=== PATIENT | female | born 1940 | race Caucasian/White ===

== ENCOUNTER 2021-05-10 11:55 | Observation (INO) | payer MEDICARE, OTHER ==
[~2021-05-10] VITALS: Ht 160 cm; Wt 94.1 kg
[2021-05-10 12:52] LABS: HEMOGLOBIN 13.3 gm/dl (12.3-15.3); RED BLOOD COUNT 4.75 M/UL (4.00-5.10); WHITE BLOOD COUNT 8.9 K/UL (4.5-11.0)
[2021-05-10] MEDS ORDERED: LIPITOR TAB 2020 MG PO (14:19)
[2021-05-10] MEDS ORDERED: COREG 12.5MG12.5 MG PO (14:19)
[2021-05-10] MEDS ORDERED: GLIPIZIDE XL5 MG PO (14:20)
[2021-05-10] MEDS ORDERED: ZESTRIL 40 MG T40 MG PO (14:21)
[2021-05-10] MEDS ORDERED: HYDROCHLOROTHIA25 MG PO (14:21)
[2021-05-10] MEDS ORDERED: THEO-24300 MG PO (14:22)
[2021-05-10] MEDS ORDERED: ASPIRIN EC325 MG PO (14:27)
[2021-05-10 15:10] LABS: BUN/CREATININE RATIO 21 (0-10)
[2021-05-11 02:31] LABS: HEMOGLOBIN 12.8 gm/dl (12.3-15.3); RED BLOOD COUNT 4.37 M/UL (4.00-5.10); WHITE BLOOD COUNT 8.1 K/UL (4.5-11.0)
[2021-05-11 03:04] LABS: BUN/CREATININE RATIO 23 (0-10)
[2021-05-12 02:00] LABS: HEMOGLOBIN 12.8 gm/dl (12.3-15.3); RED BLOOD COUNT 4.48 M/UL (4.00-5.10); WHITE BLOOD COUNT 8.9 K/UL (4.5-11.0)
[2021-05-12] MEDS ORDERED: AMLODIPINE BESYL5 MG PO (15:43)
[2021-05-12] MEDS ORDERED: HYDROCODON-ACE1 EAC4 PO (15:43)
[2021-05-12] MEDS ORDERED: LEVOFLOXACIN250 MG PO (15:43)
[2021-05-12] MEDS ORDERED: ACETAMINOPHEN325 MG PO (15:43)
== END 2021-05-12 17:13 | disposition home or self-care (01) ==
LOC: ER1 11:55 → PROG CARE 14:13 → CDU 14:13 → PROG CARE 14:13
PROVIDERS: Emergency Medicine; Internal Medicine; Physician Assistant; ADMIT Internal Medicine Infectious Disease
DX: I49.5 Sick sinus syndrome (principal); R00.1 Bradycardia, unspecified; S61.213A Laceration without foreign body of left middle finger without damage to nail, initial encounter; S61.215A Laceration without foreign body of left ring finger without damage to nail, initial encounter; S61.217A Laceration without foreign body of left little finger without damage to nail, initial encounter; S61.512A Laceration without foreign body of left wrist, initial encounter; S51.012A Laceration without foreign body of left elbow, initial encounter; S40.212A Abrasion of left shoulder, initial encounter; I10 Essential (primary) hypertension; E78.5 Hyperlipidemia, unspecified; I25.10 Atherosclerotic heart disease of native coronary artery without angina pectoris; F17.210 Nicotine dependence, cigarettes, uncomplicated; N19 Unspecified kidney failure; E11.9 Type 2 diabetes mellitus without complications; I25.2 Old myocardial infarction; E78.00 Pure hypercholesterolemia, unspecified; J44.9 Chronic obstructive pulmonary disease, unspecified; Z20.822 Contact with and (suspected) exposure to COVID-19; Z88.0 Allergy status to penicillin; Z88.5 Allergy status to narcotic agent; Z88.8 Allergy status to other drugs, medicaments and biological substances; Z95.5 Presence of coronary angioplasty implant and graft; Z91.81 History of falling; Z86.73 Personal history of transient ischemic attack (TIA), and cerebral infarction without residual deficits; Z79.82 Long term (current) use of aspirin; Z79.84 Long term (current) use of oral hypoglycemic drugs; Z79.899 Other long term (current) drug therapy; W19.XXXA Unspecified fall, initial encounter
CPT/HCPCS: ECHO; 12002; 36415; 70450; 71045; 73030; 73080; 73110; 73130; 80048; 80053; 80198; 82550; 82553; 82962; 83735; 83874; 83880; 84439; 84443; 84484; 85025; 85610; 85730; 93005; 93306; 94664; 94760; 96374; 96376; 97162; 99285; G0378; J0360; U0002

== ENCOUNTER 2022-07-16 18:38 | Inpatient (IN) | payer MEDICARE, OTHER ==
[~2022-07-16] VITALS: Ht 160 cm; Wt 104.0 kg
[~2022-07-16 18:38] MED LIST: ACETAMINOPHEN325 MG PO; AMLODIPINE BESYL5 MG PO; ASPIRIN EC325 MG PO; COREG 12.5MG12.5 MG PO; GLIPIZIDE XL5 MG PO; HYDROCHLOROTHIA25 MG PO; HYDROCODON-ACE1 EAC4 PO; LEVOFLOXACIN250 MG PO; LIPITOR TAB 2020 MG PO; THEO-24300 MG PO; ZESTRIL 40 MG T40 MG PO
[2022-07-16 19:18] LABS: HEMOGLOBIN 15.8 gm/dl (12.3-15.3); RED BLOOD COUNT 5.27 M/UL (4.00-5.10)
[2022-07-16] MEDS ORDERED: LATANOPROST2.5 ML OP (22:26)
[2022-07-16] MEDS ORDERED: PROAIR HFA8.5 GM INH (22:30)
[2022-07-17 04:37] LABS: HEMOGLOBIN 14.5 gm/dl (12.3-15.3); RED BLOOD COUNT 4.89 M/UL (4.00-5.10); WHITE BLOOD COUNT 19.6 K/UL (4.5-11.0)
[2022-07-17] MEDS ORDERED: AMLODIPINE BESY10 MG PO (09:21)
[2022-07-18 05:22] LABS: WHITE BLOOD COUNT 22.9 K/UL (4.5-11.0)
[2022-07-18 05:25] LABS: HEMOGLOBIN 12.3 gm/dl (12.3-15.3); RED BLOOD COUNT 4.17 M/UL (4.00-5.10)
[2022-07-19 09:00] LABS: HEMOGLOBIN 11.8 gm/dl (12.3-15.3)
[2022-07-19 09:04] LABS: WHITE BLOOD COUNT 15.8 K/UL (4.5-11.0)
[2022-07-20 08:39] LABS: WHITE BLOOD COUNT 21.8 K/UL (4.5-11.0)
[2022-07-20 09:37] LABS: HEMOGLOBIN 11.6 gm/dl (12.3-15.3); RED BLOOD COUNT 3.9 M/UL (4.00-5.10); WHITE BLOOD COUNT 16.2 K/UL (4.5-11.0)
--- NOTE | 2022-07-21 10:05 | NUR ---
STEPHANIE NOTIFIED NOW OF PT STATUS,, ALL INFORMATION GIVEN PER REQUEST, SPOKE TO LIZ, WILL CALL THEM BACK WITH TIME OF
--- NOTE | 2022-07-21 10:17 | NUR ---
NOTIFIED DR NOLEN OF PT COMFORT CARE AND EXTUBATION
== END 2022-07-21 12:29 | disposition expired ==
LOC: ER1 18:38 → CDU 20:52 → CCU 20:52
PROVIDERS: Emergency Medicine; Internal Medicine Critical Care Medicine; Internal Medicine Nephrology; Internal Medicine Pulmonary Disease; ADMIT Student in an Organized Health Care Education/Training Program
PROC: 5A1955Z Respiratory Ventilation, Greater than 96 Consecutive Hours (ICD-10-PCS; principal; 2022-07-16)
PROC: 0BH17EZ Insertion of Endotracheal Airway into Trachea, Via Natural or Artificial Opening (ICD-10-PCS; 2022-07-16)
PROC: 3E03329 Introduction of Other Anti-infective into Peripheral Vein, Percutaneous Approach (ICD-10-PCS; 2022-07-16)
PROC: 3E043XZ Introduction of Vasopressor into Central Vein, Percutaneous Approach (ICD-10-PCS; 2022-07-16)
PROC: B24BZZZ Ultrasonography of Heart with Aorta (ICD-10-PCS; 2022-07-18)
DX: I21.4 Non-ST elevation (NSTEMI) myocardial infarction (principal); A41.9 Sepsis, unspecified organism; G93.41 Metabolic encephalopathy; Z66 Do not resuscitate; Z51.5 Encounter for palliative care; Z20.822 Contact with and (suspected) exposure to COVID-19; I50.23 Acute on chronic systolic (congestive) heart failure; J18.9 Pneumonia, unspecified organism; J96.21 Acute and chronic respiratory failure with hypoxia; I63.442 Cerebral infarction due to embolism of left cerebellar artery; R65.21 Severe sepsis with septic shock; N17.0 Acute kidney failure with tubular necrosis; J44.0 Chronic obstructive pulmonary disease with (acute) lower respiratory infection; Z68.41 Body mass index [BMI] 40.0-44.9, adult; I13.0 Hypertensive heart and chronic kidney disease with heart failure and stage 1 through stage 4 chronic kidney disease, or unspecified chronic kidney disease; R57.0 Cardiogenic shock; I08.3 Combined rheumatic disorders of mitral, aortic and tricuspid valves; E78.5 Hyperlipidemia, unspecified; I45.10 Unspecified right bundle-branch block; N18.30 Chronic kidney disease, stage 3 unspecified; E11.22 Type 2 diabetes mellitus with diabetic chronic kidney disease; R62.7 Adult failure to thrive; E66.01 Morbid (severe) obesity due to excess calories; E78.00 Pure hypercholesterolemia, unspecified; I25.10 Atherosclerotic heart disease of native coronary artery without angina pectoris; Z95.5 Presence of coronary angioplasty implant and graft; Z86.73 Personal history of transient ischemic attack (TIA), and cerebral infarction without residual deficits; Z87.892 Personal history of anaphylaxis; Z90.49 Acquired absence of other specified parts of digestive tract; Z90.710 Acquired absence of both cervix and uterus; Z89.421 Acquired absence of other right toe(s); I25.2 Old myocardial infarction; Z82.49 Family history of ischemic heart disease and other diseases of the circulatory system; Z79.01 Long term (current) use of anticoagulants; Z79.82 Long term (current) use of aspirin; Z88.0 Allergy status to penicillin; Z88.8 Allergy status to other drugs, medicaments and biological substances
CPT/HCPCS: ECHO; 31500; 36415; 36600; 70450; 71045; 80048; 80053; 80061; 81001; 82550; 82553; 82803; 82962; 83036; 83605; 83735; 83880; 84100; 84484; 85025; 85027; 85730; 86140; 87040; 87070; 87077; 87081; 87186; 87205; 93005; 93306; 94002; 94003; 94640; 94760; 96365; 96366; 96375; 99285; C9113; J0456; J0461; J0696; J1160; J1644; J1940; J2020; J2185; J2250; J2370; J2930; J3010; J7030; J7050; P9047; U0002